=== PATIENT | male | born 1985 | race Hispanic/Latino ===

== ENCOUNTER 2017-03-14 16:19 | Emergency (ER) | payer OTHER ==
[2017-03-14 16:48] VITALS: BP 126/68; PULSE 59; RESP 18; TEMP 98.2; O2SAT 98
--- NOTE | 2017-03-14 19:39 | ED PDOC ---
Lower Extremity Pain/Injury Time Seen by Provider: 03/14/17 17:03 Chief Complaint (Nursing): Lower Extremity Problem/Injury Chief Complaint (Provider): Left calf pain History Per: Patient History/Exam Limitations: no limitations Onset/Duration Of Symptoms: Days Additional Complaint(s): Pt states he was in the hospital for 5 days sleeping on a couch and chair because was in labor and had a . Pt state he had DVT in the left leg in the past after left leg surgery. No work-up was ever completed for clotting disorders due to immobility. No chest pain. No SOB. Past Medical History Reviewed: Historical Data, Nursing Documentation, Vital Signs Vital Signs: Last Vital Signs Temp 98.2 F 03/14/17 16:44 Pulse 59 L 03/14/17 16:44 Resp 18 03/14/17 16:44 BP 126/68 03/14/17 16:44 Pulse Ox 98 03/14/17 16:44 - Medical History PMH: Anxiety, Deep Vein Thrombosis (Left leg DVT after ankle surgery - 2006) - Surgical History Surgical History: No Surg Hx - Family History Family History: States: No Known Family Hx - Living Arrangements Living Arrangements: With Family - Social History Current smoker - smoking cessation education provided: No - Allergies Allergies/Adverse Reactions: Allergies Allergy/AdvReac Type Severity Reaction Status Date / Time No Known Allergies Allergy Verified 12/18/13 01:45 Review of Systems ROS Statement: Except As Marked, All Systems Reviewed And Found Negative Constitutional: Negative for: Fever, Chills Musculoskeletal: Positive for: Other (Left calf pain) Physical Exam - Reviewed Nursing Documentation Reviewed: Yes Vital Signs Reviewed: Yes - Physical Exam Appears: Positive for: Well, Non-toxic, No Acute Distress Head Exam: Positive for: ATRAUMATIC, NORMAL INSPECTION, NORMOCEPHALIC Skin: Positive for: Normal Color, Warm, DRY Eye Exam: Positive for: Normal appearance ENT: Positive for: Normal ENT Inspection Neck: Positive for: Normal Respiratory: Negative for: Accessory Muscle Use Back: Positive for: Normal Inspection Extremity: Positive for: Normal ROM, Calf Tenderness (Left ) Neurologic/Psych: Positive for: Alert, Oriented - ECG O2 Sat by Pulse Oximetry: 98 Disposition - Clinical Impression Clinical Impression: Pain of left calf - Patient ED Disposition Is Patient to be Admitted: No Counseled Patient/Family Regarding: Diagnosis, Need For Followup - Disposition Disposition: Routine/Home Disposition Time: 19:36 Condition: GOOD Instructions: Musculoskeletal Pain (ED)
--- NOTE | 2017-03-15 09:18 | US ---
HISTORY: left calf pain, history of DVT . PRIORS: None. FINDINGS: 2-D, color and duplex Doppler analysis of the lower extremity venous circulation using routine protocol from the femoral veins through the popliteal veins. Venous compressibility: Normal. Flow and augmentation patterns: Normal. Visualized veins upper third of calf: Normal. Shah cyst: None. IMPRESSION: No sonographic or Doppler evidence for DVT in left lower extremity.
== END 2017-03-14 19:41 | disposition home or self-care (01) ==
LOC: H.ER 16:19
DX: M79.605 Pain in left leg (principal); F41.9 Anxiety disorder, unspecified; Z86.718 Personal history of other venous thrombosis and embolism